=== PATIENT | male | born 1990 | race Caucasian/White ===

== ENCOUNTER 2019-04-11 07:36 | Day surgery (SDC) | payer MEDICAID ==
[~2019-04-11] VITALS: Ht 175.3 cm; Wt 78.5 kg
[2019-04-11] MEDS ORDERED: LACTATED RINGERS 1,000 ML IV SCH (08:30)
[2019-04-11 08:37] LABS: BASOPHILS % 0.6 % (0.0-2.0); EOSINOPHILS % 3.7 % (0.0-5.0); HEMATOCRIT. 47.3 % (42.0-52.0); HEMOGLOBIN. 16.1 g/dL (14.0-18.0); LYMPHOCYTES % 36.9 % (20.0-50.0); MEAN CORPUSCULAR HEMOGLOBIN 28.7 pg (28.0-32.0); MEAN CORPUSCULAR VOLUME 84.3 fL (80.0-94.0); MEAN PLATELET VOLUME 8.8 fl (7.4-10.4); MONOCYTES % 9.4 % (2.0-8.0); NEUTROPHILS % 49.4 % (40.0-76.0); PLATELET 182 x1000/uL (130-400); RED BLOOD CELL COUNT 5.62 mill/uL (4.7-6.1); RED CELL DISTRIBUTION WIDTH 13.3 % (11.6-14.6)
[2019-04-11 08:42] LABS: CHLORIDE 107 mEq/L (98-107)
[2019-04-11 08:45] LABS: CLARITY URINE CLEAR (CLEAR); COLOR URINE YELLOW (YELLOW); KETONES URINE NEGATIVE (NEGATIVE); LEUKOCYTE ESTERASE URINE 1+ (NEGATIVE); NITRITE URINE NEGATIVE (NEGATIVE); OCCULT BLOOD URINE 3+ (NEGATIVE); PH URINE 5.5 (4.5-8.0); PROTEIN URINE 2+ (NEGATIVE); SPECIFIC GRAVITY URINE 1.025 (1.005-1.030); UROBILINOGEN URINE 0.2 E.U./dL (0.2-1.0)
[2019-04-11 08:46] LABS: PARTIAL THROMBOPLASTIN TIME 29.6 sec (23.4-31.0); PROTHROMBIN TIME 10.2 sec (9.6-11.0)
[2019-04-11] MEDS ORDERED: MIDAZOLAM HCL 2 MG/2 ML VIAL ONE (10:37)
[2019-04-11] MEDS ORDERED: FENTANYL CITRATE/PF 50MCG/ML 2ML VIAL ONE (10:37)
[2019-04-11] MEDS ORDERED: PROPOFOL 200MG/20ML VIAL IV ONE (10:37)
[2019-04-11] MEDS ORDERED: CEFAZOLIN SODIUM 1000MG/VIAL ONE (10:37)
[2019-04-11] MEDS ORDERED: SODIUM CHLORIDE 0.9% 10ML VIAL ONE ×2 (10:37→10:53)
[2019-04-11] MEDS ORDERED: LIDOCAINE HCL/PF 1% 10 MG/ML 5ML VIAL ONE (10:37)
[2019-04-11] MEDS ORDERED: ROCURONIUM BROMIDE 10MG/ML VIAL 5ML IV ONE (10:37)
[2019-04-11] MEDS ORDERED: EPHEDRINE SULFATE 50MG/ML VIAL ONE (10:53)
[2019-04-11] MEDS ORDERED: ONDANSETRON HCL 4MG/2ML INJ ONE ×2 (10:55→13:15)
[2019-04-11] MEDS ORDERED: DEXAMETHASONE 4MG/ML 1ML VIAL ONE (10:55)
[2019-04-11] MEDS ORDERED: TRAM50TA3 PO (11:21)
[2019-04-11] MEDS ORDERED: SUCCINYLCHOLINE CHLORIDE 200MG/10ML IV ONE (11:56)
[2019-04-11] MEDS ORDERED: TRAMADOL 50MG TABLET PO PRN (12:15)
[2019-04-11] MEDS ORDERED: HYDROMORPHONE HCL/PF 2MG/ML (OR) ONE (13:16)
[2019-04-11] MEDS: HYDROMORPHONE HCL/PF 2MG/ML CPJ IV PRN ×2 (13:19→13:31)
[2019-04-11] MEDS ORDERED: ONDANSETRON HCL 4MG/2ML INJ IV PRN (13:30)
[2019-04-11] MEDS ORDERED: OXYBUTYNIN CHLORIDE 5MG TABLET PO NR (14:45)
[2019-04-11 14:57] VITALS: BP 104/69
== END 2019-04-11 16:00 | disposition home or self-care (01) ==
LOC: OR 07:36
PROVIDERS: ATTEND Urology
DX: N20.0 Calculus of kidney (principal); F17.210 Nicotine dependence, cigarettes, uncomplicated; F12.90 Cannabis use, unspecified, uncomplicated; Z98.890 Other specified postprocedural states; Z79.899 Other long term (current) drug therapy
CPT/HCPCS: 36415; 50590; 52332; 80048; 81003; 85025; 85610; 85730; 87086; 93005; C1769; C2617; J0330; J0690; J1100; J1170; J2250; J2405; J2704; J3010; J3490